=== PATIENT | female | born 2000 | race African-American/Black ===

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

== ENCOUNTER 2022-04-26 09:13 | Emergency (ER) | payer MEDICAID ==
[~2022-04-26] VITALS: Ht 172.7 cm; Wt 80.0 kg
[2022-04-26] MEDS ORDERED: CYCLOBENZAPRINE 10MG TABLET PO ONE (11:15)
[2022-04-26] MEDS ORDERED: KETOROLAC 60MG/2ML VIAL IM ONE (11:15)
[2022-04-26 12:04] VITALS: BP 92/65
[2022-04-26] MEDS ORDERED: CYCL5TAB MT (12:51)
[2022-04-26] MEDS ORDERED: IBUP-2028 MT (12:52)
== END 2022-04-26 13:14 | disposition home or self-care (01) ==
LOC: ER 09:13
DX: M25.512 Pain in left shoulder (principal); M54.2 Cervicalgia; Z88.6 Allergy status to analgesic agent; Z90.2 Acquired absence of lung [part of]; V73.6XXA Passenger on bus injured in collision with car, pick-up truck or van in traffic accident, initial encounter; Y93.89 Activity, other specified; Y92.488 Other paved roadways as the place of occurrence of the external cause
CPT/HCPCS: 73030; 81025; 96372; 99283; J1885; Z7610

== ENCOUNTER 2024-11-15 09:44 | Emergency (ER) | payer BC, MEDICAID ==
[~2024-11-15] VITALS: Ht 167.6 cm; Wt 70.0 kg
[~2024-11-15 09:44] MED LIST: CYCL5TAB3 MT; IBUP-2028 MT
[2024-11-15 09:48] VITALS: TEMP 36.9; O2SAT 99
[2024-11-15 10:31] LABS: BASOPHILS % 0.2 % (0.0-2.0); DIFFERENTIAL COMMENT 0; HEMATOCRIT. 33.4 % (36.0-48.0); HEMOGLOBIN. 10.8 g/dL (12.0-16.0); LYMPHOCYTES % 11.1 % (20.0-50.0); MEAN CORPUSCULAR HEMOGLOBIN 24.7 pg (28.0-32.0); MEAN CORPUSCULAR HGB CONC 32.3 g/dL (31.0-37.0); MEAN CORPUSCULAR VOLUME 76.4 fL (81.0-99.0); MEAN PLATELET VOLUME 7.2 fl (7.4-10.4); NEUTROPHILS % 83.7 % (40.0-76.0); PLATELET 433 x1000/uL (130-400); RED BLOOD CELL COUNT 4.37 mill/uL (4.2-5.4); RED CELL DISTRIBUTION WIDTH 17.1 % (11.6-14.6); WHITE BLOOD COUNT 13.2 x1000/uL (4.5-11.0)
[2024-11-15 10:56] LABS: CARBON DIOXIDE 23 mEq/L (21-32); CHLORIDE 100 mEq/L (98-107); POTASSIUM 3.3 mEq/L (3.5-5.1); SODIUM 135 mEq/L (136-145)
[2024-11-15 10:57] LABS: CALCIUM 10.1 mg/dL (8.7-10.4)
[2024-11-15 11:02] LABS: CREATININE 0.7 mg/dL (0.6-1.0); GLUCOSE 87 mg/dL (70-105); UREA NITROGEN BLOOD 14 mg/dL (9-23)
[2024-11-15 12:13] LABS: CLARITY URINE CLOUDY (CLEAR); COLOR URINE YELLOW (YELLOW); GLUCOSE URINE NEGATIVE (NEGATIVE); KETONES URINE 4+ (NEGATIVE); LEUKOCYTE ESTERASE URINE NEGATIVE (NEGATIVE); NITRITE URINE NEGATIVE (NEGATIVE); OCCULT BLOOD URINE NEGATIVE (NEGATIVE); PROTEIN URINE 2+ (NEGATIVE); SPECIFIC GRAVITY URINE 1.038 (1.005-1.030)
[2024-11-15 12:18] LABS: B-HCG QUANTITATIVE 32670 mIU/mL (<6)
[2024-11-15 12:31] LABS: MUCUS URINE 1+ /lpf (< = 2+); SQUAMOUS EPITHELIAL CELL URINE 3+ /lpf (RARE/1+)
[2024-11-15 12:34] LABS: BACTERIA URINE 1+
[2024-11-15 12:36] LABS: WBC URINE 0-2 /hpf (0-2)
[2024-11-15 12:37] LABS: RBC URINE 0-2 /hpf (0-2)
[2024-11-15] MEDS ORDERED: ONDA4TAB50 MT (12:42)
[2024-11-15] MEDS: ONDANSETRON HCL 8MG TABLET PO ONE (13:10)
[2024-11-15] MEDS: ONDANSETRON HCL 4MG TABLET PO ONE (13:13)
[2024-11-15 13:15] VITALS: BP 123/55; PULSE 61; RESP 18; O2SAT 97
== END 2024-11-15 13:36 | disposition home or self-care (01) ==
LOC: ER 10:15
DX: O20.9 Hemorrhage in early pregnancy, unspecified (principal); O26.891 Other specified pregnancy related conditions, first trimester; R11.2 Nausea with vomiting, unspecified; Z3A.01 Less than 8 weeks gestation of pregnancy
CPT/HCPCS: 99284; 76801; 80048; 81003; 81025; 84702; 85025; 86850; 86900; 86901; 36415; Q0162 ×2